=== PATIENT | female | born 1955 | race Caucasian/White ===

== ENCOUNTER 2017-06-15 06:29 | Emergency (ER) | payer OTHER ==
[2017-06-15 06:50] VITALS: O2SAT 92
--- NOTE | 2017-06-15 07:15 | ED.PDOC ---
History of Present Illness - General Chief Complaint: ENT Problem Stated Complaint: nose bleed Time Seen by Provider: 06/15/17 07:15 Source: patient Exam Limitations: no limitations - History of Present Illness Initial Comments: Emely Enriquez 62 y/o female stated that she had 2 episodes of nosebleeds one yesterday and this am.It spontaneously stopped. Denies nose injury or taking blood thinners no chronic medical problem. Timing/Duration: gradual Severity: mild EENT Location: nose Prearrival Treatment: squeezing nostrils Presenting Symptoms: see hpi Improving Factors: nothing Worsening Factors: nothing Associated Symptoms: denies symptoms Allergies/Adverse Reactions: Allergies Penicillins Allergy (Verified 05/31/16 21:12) Home Medications: Ambulatory Orders NK [NK] 06/15/17 Review of Systems - Review of Systems Constitutional: States: no symptoms reported EENTM: States: see HPI Respiratory: States: no symptoms reported Cardiology: States: no symptoms reported Gastrointestinal/Abdominal: States: no symptoms reported Past Medical History (General) - Patient Medical History Hx Asthma: Yes Hx of COPD: Yes Hx Congestive Heart Failure: No Hx Hypertension: Yes Hx Diabetes: No Surgical History: Hysterectomy - Vaccination History Hx Tetanus, Diphtheria Vaccination: No Hx Influenza Vaccination: No Hx Pneumococcal Vaccination: No - Social History Hx Tobacco Use: Yes Hx Alcohol Use: No Hx Substance Use: No Hx Substance Use Treatment: No Hx Depression: No - Female History Patient : No - Triage Comment ED Triage Comment: pt states nose has been bleeding on/off, for past two nights Family Medical History - Family History Mother Family History: Unknown Living Status: Unknown Hx Family Cancer: Yes - lungs-mom/brother Physical Exam - Physical Exam General Appearance: Alert, No apparent distress Eye Exam: bilateral normal Ear Exam: bilateral ear: auricle normal, canal normal, TM normal Nasal Exam: normal inspection, other - no active bleeding,dry nasal mucosa Throat Exam: normal mouth inspection, pharynx normal Neck: non-tender, full range of motion, supple Cardiovascular/Respiratory: regular rate, rhythm, no M/R/G, normal peripheral pulses Abdominal Exam: non-tender, no organomegaly Neurologic: no motor/sensory deficits, alert, oriented x 3 Skin Exam: normal color, warm/dry Progress - Progress Progress: 06/15/17 07:28 Last Vital Signs Temp 98.6 F 06/15/17 06:42 Pulse 88 06/15/17 06:42 Resp 20 06/15/17 06:42 BP 164/103 06/15/17 06:42 Pulse Ox 92 L 06/15/17 06:42 Departure - Departure Clinical Impression: Epistaxis Time of Disposition: 07:29 Disposition: Discharge to Home or Self Care Departure Forms: ED Discharge - Pt. Copy, Patient Portal Self Enrollment Instructions: DI for Nosebleed, Nosebleed, Nosebleeds (Alternative Therapy) Home Medications: Ambulatory Orders NK [NK] 06/15/17 Additional Instructions: AFRIN Nose [place] 2 sprays each nose 2-3 x a day 3 days off 3 days on as needed for nosebleeds.NEED TO SIGN UP FOR PRIMARY Md-KASIE/[phone] call for appointment
[2017-06-15 07:30] VITALS: TEMP 97.2
[2017-06-15] MEDS: OXYMETAZOLINE NASAL SPRAY 15 ML BTTL BNAS PRN (07:33)
[2017-06-15 07:53] VITALS: BP 152/98
== END 2017-06-15 07:48 | disposition home or self-care (01) ==
LOC: ER 06:29
DX: R04.0 Epistaxis (principal); J44.9 Chronic obstructive pulmonary disease, unspecified; I10 Essential (primary) hypertension; Z88.0 Allergy status to penicillin

== ENCOUNTER 2017-11-29 12:24 | Emergency (ER) | payer OTHER ==
--- NOTE | 2017-11-29 12:49 | ED.PDOC ---
History of Present Illness - General Time Seen by Provider: 11/29/17 12:43 Additional Information: 62 YEAR OLD WHITE FEMALE CHRONIC SMOKER FOR SEVERAL DECADES PRESENTS WITH INCREASING SHORTNESS OF BREATH COUGH SUB STERNAL PAIN SHARP IN CHARECTER WORSE WITH BREATHING DENIES ANY PRESSURE TIGHTNESS NO ARM NECK OR JAW PAIN SHE IS OBESE HAS HISTORY OF HYPERTENSION AND DISLIPIDEMIA FAMILY HISTORY OF CAD AND LUNG CANCER SHE WORKS AT A [employer] AND SHE HAS CHECKED HER OXYGEN SATURATION AT TIMES OF DISTRESS IT GOES DOWN TO 80S AND SHE HAS TO TAKE OXYGEN SHE HAS NO PCP - History of Present Illness Timing/Duration: 1 week Severity: moderate Activities at Onset: activity Possible Cause: occasional episodes Improving Factors: nothing Associated Symptoms: weakness, wheezing Respiratory Risk Factors: no cause identified Allergies/Adverse Reactions: Allergies Penicillins Allergy (Verified 05/31/16 21:12) Prednisone Adverse Reaction (Verified 11/29/17 13:12) Home Medications: Ambulatory Orders Albuterol Inhaler [Ventolin Hfa Inhaler] 1 puff INH PRN PRN 11/29/17 Azithromycin Tab [Zithromax Tab] 250 mg PO QDPC #6 tab 11/29/17 Dexamethasone Tab [Decadron Tab] 4 mg PO Q12HRS 5 Days #10 tab 11/29/17 Review of Systems - Review of Systems Constitutional: States: no symptoms reported EENTM: States: no symptoms reported Respiratory: States: see HPI Cardiology: States: no symptoms reported Gastrointestinal/Abdominal: States: no symptoms reported Genitourinary: States: no symptoms reported Musculoskeletal: States: no symptoms reported Skin: States: no symptoms reported Neurological: States: no symptoms reported Endocrine: States: no symptoms reported Hematologic/Lymphatic: States: no symptoms reported Past Medical History (General) - Patient Medical History Hx Asthma: Yes Hx of COPD: Yes Hx Congestive Heart Failure: No Hx Hypertension: Yes Hx Diabetes: No - Vaccination History Hx Tetanus, Diphtheria Vaccination: No Hx Influenza Vaccination: No Hx Pneumococcal Vaccination: No - Social History Hx Tobacco Use: Yes Hx Alcohol Use: No Hx Substance Use: No Hx Substance Use Treatment: No Hx Depression: No - Female History Patient : No Family Medical History - Family History Mother Family History: Unknown Living Status: Unknown Hx Family Cancer: Yes - lungs-mom/brother Physical Exam - Physical Exam General Appearance: Comfortable Eyes, Ears, Nose, Throat Exam: PERRL/EOMI, normal ENT inspection, TMs normal Neck: non-tender, full range of motion, supple Respiratory: chest non-tender, rhonchi, wheezing Cardiovascular/Chest: normal peripheral pulses, regular rate, rhythm, no edema, no gallop, no JVD, no murmur Gastrointestinal/Abdominal: normal bowel sounds, non tender, soft, no organomegaly, no pulsatile mass Extremity: normal range of motion, non-tender, normal inspection, no pedal edema 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, no motor/sensory deficits, alert, normal mood/affect Skin Exam: normal color, warm/dry Progress - Results/Orders Results/Orders: 2.20 PM POST TREATMENT AIR MOVEMENT MUCH IMPROVED NO MORE WHEEZES AUDIBLE PULSE OX 92 % ON ROOM AIR ( CHRONIC SMOKER ) Departure - Departure Clinical Impression: Acute bronchitis, COPD exacerbation, Nicotine abuse Time of Disposition: 14:27 Disposition: Discharge to Home or Self Care Condition: Good Diet: resume usual diet Prescriptions: Dexamethasone Tab [Decadron Tab] 4 mg PO Q12HRS 5 Days #10 tab Azithromycin Tab [Zithromax Tab] 250 mg PO QDPC #6 tab Home Medications: Ambulatory Orders Albuterol Inhaler [Ventolin Hfa Inhaler] 1 puff INH PRN PRN 11/29/17 Azithromycin Tab [Zithromax Tab] 250 mg PO QDPC #6 tab 11/29/17 Dexamethasone Tab [Decadron Tab] 4 mg PO Q12HRS 5 Days #10 tab 11/29/17 Additional Instructions: DO NOT SMOKE
[2017-11-29] MEDS: IPRATROPIUM/ALBUTEROL 3 ML VIAL NEB ONE ×2 (13:09→13:58)
[2017-11-29 13:12] VITALS: TEMP 98.4
--- NOTE | 2017-11-29 13:24 | RAD ---
EXAM: Chest,1 View CLINICAL INDICATION: 62-year-old female with COPD. TECHNIQUE: Single view, AP portable chest was obtained. COMPARISON: Single view chest 06/05/2016. FINDINGS: Stable prominent cardiac and mediastinal silhouette. Heart size is top normal. Low lung volumes grossly clear without focal opacity, pneumothorax or pleural effusions. The visualized bones are within normal limits. IMPRESSION: No acute cardiopulmonary abnormalities. Electronically signed by: Salma Chun MD 11/29/2017 1:22 PM CDT
[2017-11-29] MEDS ORDERED: DEXAMETHASONE INJ 4 MG/ML VIAL ONE (14:18)
[2017-11-29] MEDS ORDERED: ALBUTEROL SULFATE 2.5 MG/3 ML VIAL NEB ONE ×2 (14:19→14:40)
[2017-11-29] MEDS ORDERED: DEXAMETHASONE INJ 4 MG, SODIUM CHLORIDE 0.9% NEB 3 ML NEB ONE ×2 (14:20)
[2017-11-29] MEDS ORDERED: HYDROcodone 7.5MG/APAP 325MG 1 EA TAB PO ONE (15:10)
[2017-11-29 15:51] VITALS: BP 154/95; O2SAT 86
== END 2017-11-29 15:20 | disposition home or self-care (01) ==
LOC: ER 12:24
DX: J44.1 Chronic obstructive pulmonary disease with (acute) exacerbation (principal); J20.9 Acute bronchitis, unspecified; J44.0 Chronic obstructive pulmonary disease with (acute) lower respiratory infection; F17.210 Nicotine dependence, cigarettes, uncomplicated; I10 Essential (primary) hypertension; Z79.899 Other long term (current) drug therapy; E66.01 Morbid (severe) obesity due to excess calories; E78.5 Hyperlipidemia, unspecified
CPT/HCPCS: 36415; 71045; 80048; 84484; 85025; 93005; 94640; J1100; J7611; J7620

== ENCOUNTER 2018-12-10 11:23 | Inpatient (IN) | payer OTHER ==
[2018-12-10] MEDS ORDERED: IPRATROPIUM/ALBUTEROL 3 ML VIAL NEB ONE (11:33)
[2018-12-10] MEDS ORDERED: methylPREDNISolone SODIUM SUC 125 MG/2 ML VIAL IV ONE (11:33)
[2018-12-10] MEDS ORDERED: AZITHROMYCIN IV 500 MG in SODIUM CHLORIDE 0.9% 250ML 250 ML IVPB ONE (11:33)
[2018-12-10] MEDS ORDERED: MONTELUKAST 10 MG TAB PO ONE (11:33)
[2018-12-10] MEDS ORDERED: HYDROcodone 7.5MG/APAP 325MG 1 EA TAB PO ONE (11:33)
[2018-12-10] MEDS ORDERED: AZITHROMYCIN IV 500 MG VIAL IVPB ONE (11:34)
[2018-12-10] MEDS ORDERED: SODIUM CHLORIDE 0.9% 250ML 250 ML ONE (11:35)
--- NOTE | 2018-12-10 12:21 | RAD ---
Procedure: XR CHEST 2 VIEWS Exam Date: 12/10/2018 Ordering Provider: Cyril Reed Clinical Indication: copd exac Comparison: 11/30/2018 Findings: Borderline cardiomegaly. No focal lung consolidation. Lungs are hyperinflated. Coarsened interstitium similar to prior. No pleural effusion. No pneumothorax. No acute osseous abnormality. Impression: 1. No acute abnormality in the chest. Electronically signed by: Gustavo Valadez MD 12/10/2018 12:18 PM CDT
[2018-12-10] MEDS ORDERED: SODIUM CHLORIDE 0.9% 1000ML 1,000 ML IVS ONE (12:26)
[2018-12-10] MEDS ORDERED: cefTRIAXone SODIUM 1 GM in SODIUM CHL 0.9% 50ML MIN-BAG+ 50 ML IVPB ONE (12:26)
--- NOTE | 2018-12-10 12:40 | ED.PDOC ---
History of Present Illness - General Chief Complaint: Respiratory Problem Stated Complaint: shortness of breath Time Seen by Provider: 12/10/18 11:25 Source: patient Exam Limitations: no limitations - History of Present Illness Initial Comments: the patient is a 63-year-old female presenting to the emergency room secondary to increasing shortness of breath over the last 2 weeks. 10 days ago she went to the urgent care and was written for Levaquin and DuoNeb nebs. She did these but she was also written for prednisone but refused to take that secondary to her brother having had a very severe reaction to it. The patient does smoke and is around multiple allergens. She does have a low flow concentrator that she does sometimes wear at night. The patient desaturates at rest down to 84% here while not on oxygen. She is holding her oxygen levels at 93% on 3 L. The patient does have significant increased work of breathing and is able only to say a few words at a time without getting short of breath. She does sit in a tripod position and does have some moderate respiratory distress. She is alert and oriented. Timing/Duration: unsure Severity: moderate Improving Factors: nothing Worsening Factors: nothing Associated Symptoms: cough, malaise, shortness of breath, weakness Allergies/Adverse Reactions: Allergies Penicillins Allergy (Verified 05/31/16 21:12) Prednisone Adverse Reaction (Verified 11/29/17 13:12) Home Medications: Ambulatory Orders Albuterol Inhaler [Ventolin Hfa Inhaler] 1 puff INH PRN PRN 11/29/17 Review of Systems - Review of Systems Constitutional: States: malaise EENTM: States: nose congestion Respiratory: States: cough, short of breath, wheezing Cardiology: States: no symptoms reported Gastrointestinal/Abdominal: States: no symptoms reported Genitourinary: States: no symptoms reported Musculoskeletal: States: no symptoms reported Skin: States: no symptoms reported Neurological: States: no symptoms reported Endocrine: States: no symptoms reported All other Systems: No Change from Baseline Past Medical History (General) - Patient Medical History Hx Stroke: No Hx Asthma: Yes Hx of COPD: Yes Hx Cardiac Disorders: No Hx Congestive Heart Failure: No Hx Hypertension: Yes Hx Diabetes: No Hx Cancer: No Hx Hepatitis C: No Surgical History: Hysterectomy - Vaccination History Hx Tetanus, Diphtheria Vaccination: No Hx Influenza Vaccination: No Hx Pneumococcal Vaccination: No - Social History Hx Tobacco Use: Yes Hx Chewing Tobacco Use: No Hx Alcohol Use: No Hx Substance Use: No Hx Substance Use Treatment: No Hx Depression: No Hx Physical Abuse: No Hx Emotional Abuse: No Hx Suspected Abuse: No - Female History Patient : No Family Medical History - Family History Mother Family History: Unknown Living Status: Unknown Hx Family Cancer: Yes - lungs-mom/brother Physical Exam - Physical Exam General Appearance: Alert, Anxious, Other - the patient does smell of smoke Eye Exam: bilateral normal Ears, Nose, Throat: hearing grossly normal, nasal congestion Neck: full range of motion Respiratory: respiratory distress - moderate, decreased breath sounds, accessory muscle use, rhonchi, wheezing Cardiovascular/Chest: normal peripheral pulses, no edema, tachycardia - mild sinus Peripheral Pulses: radial,right: 2+, radial,left: 2+, dorsalis pedis,right: 2+, dorsalis pedis,left: 2+ Gastrointestinal/Abdominal: non tender - obese, soft Rectal Exam: deferred Back Exam: no CVA tenderness, no vertebral tenderness Extremity: non-tender, normal inspection, no pedal edema, normal capillary refill 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 The patient is receiving Rocephin and azithromycin. She is receiving duo nebs and is receiving IV Solu- Medrol. She refuses the prednisone at this point so she may need longer term dexamethasone orally. The patient is of course not to smoke. She is requiring supplemental oxygen 24 7 at this point which she does not have at home. Work of breathing has decreased somewhat since her arrival here with the treatments. Admit for continued care for COPD exacerbation. The patient does have some mild polycythemia which will need to be followed. Additionally she does have some moderate hypertension which will need to be followed this day and addressed if not improving over the next day or 2. - Results/Orders Results/Orders: chest x-ray shows COPD but no overt pneumonia. Mild cardiomegaly. Laboratory Results - last 24 hr 12/10/18 12/10/18 12/10/18 11:38 11:38 11:38 WBC 7.0 RBC 5.33 Hgb 17.2 H Hct 51.8 H MCV 97.3 MCH 32.3 H MCHC 33.2 RDW 13.6 Plt Count 196 MPV 8.1 Absolute Neuts (auto) 4.30 Absolute Lymphs (auto) 1.90 Absolute Monos (auto) 0.60 Absolute Eos (auto) 0.10 Absolute Basos (auto) 0.00 Neutrophils % 62.1 Lymphocytes % 27.6 Monocytes % 8.8 Eosinophils % 0.8 L Basophils % 0.7 Sodium 138 Potassium 4.1 Chloride 98 L Carbon Dioxide 28 Anion Gap 16.1 BUN 16 Creatinine 0.48 L BUN/Creatinine Ratio 33.3 H Random Glucose 131 H Serum Osmolality 278.7 Lactic Acid 1.9 Calcium 9.3 Magnesium 2.1 Total Bilirubin 0.8 AST 24 ALT 20 Alkaline Phosphatase 75 Creatine Kinase 85 CK-MB (CK-2) 2.8 CK-MB (CK-2) % Not Reportable Troponin I < 0.02 B-Natriuretic Peptide 17.4 Serum Total Protein 7.6 Albumin 4.2 Globulin 3.4 Albumin/Globulin Ratio 1.2 Departure - Departure Clinical Impression: Acute exacerbation of COPD with asthma, Polycythemia, Hypertension Disposition: Admit Patient Condition: Serious Departure Forms: ED Discharge - Pt. Copy, Patient Portal Self Enrollment Home Medications: Ambulatory Orders Albuterol Inhaler [Ventolin Hfa Inhaler] 1 puff INH PRN PRN 11/29/17 Decision To Admit - Decistion To Admit Decision to Admit Reason: Medical Nature Decision to Admit Date: 12/10/18 Decision to Admit Time: 12:44
--- NOTE | 2018-12-10 12:57 | HP ---
SUPERVISING PHYSICIAN: Jackson Dempsey M.D. CHIEF COMPLAINT: Worsening shortness of breath. HISTORY OF PRESENT ILLNESS: Ms. Enriquez is a 63 year-old female patient that presented to the Emergency Room today due to some increasing shortness of breath over the last several weeks. It was noted 10 days previously she had gone to [facility] where she was put on Levaquin and DuoNeb treatments. She was given a dose of prednisone but refused to take it as she has had a brother with a severe reaction to it in the past. She does have a longstanding history of chronic obstructive pulmonary disease and smokes approximately a pack of cigarettes a day. She does utilize oxygen at home, more at night than the day. In the E. R. she was showing desaturations as low as 84% while not on oxygen. While on oxygen in the E. R. she was showing saturation to 93% on 3 liters nasal cannula. She was having a significant amount of increased work to breathe, only able to speak a few words instead of full sentences before becoming short of breath. She does utilize tripod positioning and initially presented in mild respiratory distress. After breathing treatments and oxygen she was showing some improvement. She was alert and oriented. Laboratory studies showed a white count of 7,000. She was polycythemic with hemoglobin of 17.2, hematocrit 51.8, platelet count 196,000. Differential showed initially to be without a left shift. Chemistries showed normal electrolytes. Lactic acid normal at 1.9. Liver functions were all within normal limits. Troponin was less than 0.02 with a normal BNP of 17. Chest x-ray in the E. R. per radiology interpretation showed no acute abnormality in the chest. In the E. R., she was placed on oxygen and given breathing treatments. She did show some slight improvement but was continuing to show desaturations and easily became dyspneic with any exertional effort, therefore she is now going to be admitted for further treatment and evaluation with COPD exacerbation and for concerns for developing community acquired pneumonia. She was admitted in stable condition. PAST MEDICAL HISTORY: 1. Uncontrolled hypertension, note treated. 2. Chronic obstructive pulmonary disease, not currently under any treatment course. PAST SURGICAL HISTORY: 1. Total hysterectomy. 2. Tubal ligation. HOME MEDICATIONS: 1. Albuterol inhaler 1 puff every 4 hours as needed for shortness of breath. ALLERGIES: PENICILLINS AND PREDNISONE. FAMILY HISTORY: Positive for lung cancer in a brother who from complications at age 42. Mother at age 55 secondary to lung cancer. Father lived to be 85 years of age and secondary to advanced age. SOCIAL HISTORY: The patient does smoke approximately a pack of cigarettes daily and has for well over 40 years. She denies any alcohol or illicit drug use. She is . She lives in [place] and she works as a medical secretary/nurse renal technician. REVIEW OF SYSTEMS: GENERAL: The patient is sitting in the tripod position on the edge of the bed with some mild pursed lip breathing and obviously short of breath. HEENT: Tympanic membranes are clear bilaterally. Oropharynx is pink and moist without any lesions. NECK: Supple, non-tender. Full range of motion. There is no jugular venous distention. CHEST: Lungs were clear, just diminished bilaterally with some mild inspiratory and expiratory wheezing. HEART: Regular rate and rhythm. Mildly tachycardic but showing sinus. GASTROINTESTINAL: Obese but soft, non-tender. Positive bowel sounds. BACK: Without any CVA tenderness or vertebral tenderness. EXTREMITIES: Just a trace of edema bilaterally. NEUROLOGIC: Cranial nerves II-XII are grossly intact. She is alert and oriented times three. SKIN: Color was pallor but improved with oxygen. PHYSICAL EXAMINATION: VITAL SIGNS: Temperature 98.1, pulse 95, blood pressure 136/85, respirations 16, satting 92% on 2 liters nasal cannula. GENERAL: The patient is resting comfortably on the edge of the bed on oxygen. HEENT: Tympanic membranes are clear bilaterally. Oropharynx was pink and moist without any lesions. NECK: Supple, non-tender. Full range of motion. No jugular venous distention. CHEST: Lung sounds were diminished throughout. No obvious wheezing or rhonchi. CARDIOVASCULAR: Regular rate and rhythm without appreciable murmurs, gallops, or rubs. ABDOMEN: Obese but soft, non-tender. Positive bowel sounds. EXTREMITIES: Without any edema. NEUROLOGIC: She is alert and oriented times three. RECTAL: Exam was deferred. LABORATORY: White count showed to be 7,000, hemoglobin 17.2, hematocrit 51.8, platelet count 196,000. Differential showed to be within normal limits. Chemistry showed normal electrolytes, BUN 16, creatinine 0.48, glucose 133, lactic acid 1.9. Liver functions all within normal limits. MICROBIOLOGY: There is no specimen submitted. RADIOLOGY: Chest x-ray in the E. R. per radiology interpretation showed no acute abnormalities in the chest. ASSESSMENT: 1. Acute exacerbation of chronic obstructive pulmonary disease with concerns for developing community acquired pneumonia in a patient who is a chronic smoker and O2 dependent. 2. Poorly controlled hypertension. PLAN: Ms. Enriquez is going to be admitted for exacerbation of COPD with concerns for community acquired pneumonia. She was started on initial antibiotic coverage with Rocephin and azithromycin which will be continued. Will provide her with aggressive pulmonary hygiene. She will be on DVT prophylaxis as per protocol. Will resume her home medications once those have been updated and verified. Will anticipate her length of stay to be at least 2 to 3 days. Until she can transition to outpatient management will continue to monitor and treat as needed. #[id number] [facility]
[2018-12-10] MEDS ORDERED: ALBUTEROL SULFATE 2.5 MG/3 ML VIAL NEB PRN (14:17)
[2018-12-10] MEDS ORDERED: ACETAMINOPHEN 325 MG TAB PO PRN (14:17)
[2018-12-10] MEDS ORDERED: SODIUM CHLORIDE 0.9% (FLUSH) 10 ML SYG IV PRN (14:17)
[2018-12-10] MEDS ORDERED: MAGNESIUM HYDROXIDE 30 ML UD PO PRN (14:17)
[2018-12-10] MEDS ORDERED: ONDANSETRON INJ 4 MG/2 ML VIAL IV PRN (14:17)
[2018-12-10] MEDS ORDERED: IV SET AND CAP CHANGE INJ INJ SCH (14:30)
[2018-12-10] MEDS ORDERED: cefTRIAXone SODIUM 1 GM VIAL ONE (15:30)
[2018-12-10] MEDS ORDERED: SODIUM CHLORIDE 0.9% 50ML 50 ML ONE (15:31)
[2018-12-10] MEDS: IPRATROPIUM/ALBUTEROL 3 ML VIAL INH SCH ×2 (16:49→19:49)
[2018-12-10] MEDS: methylPREDNISolone SODIUM SUC 125 MG/2 ML VIAL IV SCH ×2 (17:22→23:18)
[2018-12-10] MEDS ORDERED: PANTOPRAZOLE SODIUM IV 40 MG VIAL ONE (19:03)
[2018-12-11] MEDS: methylPREDNISolone SODIUM SUC 125 MG/2 ML VIAL IV SCH ×3 (05:16→17:48)
[2018-12-11] MEDS: PANTOPRAZOLE SODIUM IV 40 MG VIAL IV SCH (06:02)
--- NOTE | 2018-12-11 07:14 | RAD ---
EXAM DESCRIPTION: Chest,2 Views CLINICAL HISTORY:63 years Female, Pneumonia Comparison: December 10, 2018 FINDINGS: No focal lung consolidation. No pleural effusion. No pneumothorax. Cardiac and mediastinal silhouette is unremarkable. No acute osseous abnormality. Soft tissues are unremarkable. IMPRESSION: No acute findings. No focal lung consolidation. Electronically signed by: Alberto Young MD 12/11/2018 7:11 AM CDT
[2018-12-11] MEDS: IPRATROPIUM/ALBUTEROL 3 ML VIAL INH SCH ×4 (08:47→21:20)
[2018-12-11] MEDS ORDERED: KETOROLAC TROMETHAMINE INJ 30 MG/ML VIAL IV ONE (09:47)
[2018-12-11] MEDS ORDERED: SODIUM CHL 0.9% 50ML MIN-BAG+ 50 ML IVPB ONE (12:02)
[2018-12-11] MEDS ORDERED: KETOROLAC TROMETHAMINE INJ 60 MG/2 ML VIAL IM ONE (12:02)
[2018-12-11] MEDS ORDERED: cefTRIAXone SODIUM 1 GM VIAL ONE (12:02)
[2018-12-11] MEDS ORDERED: KETOROLAC TROMETHAMINE INJ 30 MG/ML VIAL ONE (12:04)
[2018-12-11] MEDS: cefTRIAXone SODIUM 1 GM in SODIUM CHL 0.9% 50ML MIN-BAG+ 50 ML IVPB SCH (12:32)
[2018-12-11] MEDS: ENOXAPARIN SODIUM 40 MG/0.4 ML SYG SUBCU SCH (12:32)
[2018-12-11] MEDS: SODIUM CHLORIDE 0.9% (FLUSH) 10 ML SYG IV SCH ×2 (12:33→20:57)
[2018-12-11] MEDS ORDERED: AZITHROMYCIN IV 500 MG in SODIUM CHLORIDE 0.9% 250ML 250 ML IVPB SCH (13:00)
[2018-12-11] MEDS ORDERED: SODIUM CHLORIDE 0.9% 250ML 250 ML ONE (13:04)
[2018-12-11] MEDS ORDERED: AZITHROMYCIN IV 500 MG VIAL IVPB ONE (13:04)
[2018-12-11] MEDS: BUDESONIDE NEBS 0.5 MG/2 ML VIAL NEB SCH ×2 (13:04→21:20)
[2018-12-11] MEDS: HYDROcodone 5MG/APAP 325MG 1 EA TAB PO PRN ×2 (13:09→20:57)
--- NOTE | 2018-12-11 15:30 | PN ---
DATE: 12/11/18 SUPERVISING PHYSICIAN: Isak Moore M.D. SUBJECTIVE: The patient notes that her breathing has improved a little bit. She is actually able to walk out of her room, down the key and back without any assistance on oxygen. She has had no chest pains. She has had no nausea, vomiting, diarrhea or other further complaints. OBJECTIVE: VITAL SIGNS: Temperature 98, pulse 99, blood pressure 163/90, respirations 15, satting 88 to 91% on room air, improving to 94% on 2 liters nasal cannula. GENERAL: The patient is resting comfortably on the edge of the bed. She is alert. CHEST: Lung sounds are still diminished but improved bilaterally from previous admission. No wheezing is noted. HEART: Regular rate and rhythm. ABDOMEN: Obese but soft, non-tender. Positive bowel sounds. EXTREMITIES: Without any edema. NEUROLOGIC: She is alert and oriented times three. LABORATORY: White count 4,600, hemoglobin 16, hematocrit 48.8, platelet count 182,000. Differential shows a left shift. Chemistries show normal electrolytes today with BUN 21, creatinine 0.68, calcium 9.0. RADIOLOGY: Chest x-ray per radiology interpretation showed no acute findings. No lung consolidations. ASSESSMENT: 1. Acute exacerbation of chronic obstructive pulmonary disease with concerns for developing community acquired pneumonia in a patient who is a chronic smoker and O2 dependent. 2. Poorly controlled hypertension. PLAN: Ms. Enriquez will be continued to be followed with anticipation of hopefully being able to discharge tomorrow. Will continue with DVT prophylaxis. Will continue with aggressive management with aggressive pulmonary hygiene and high dose steroids. I have added Pulmicort to the regimen. She continues on DVT prophylaxis. I have resumed her home medications. Will hopefully be able to discharge the patient tomorrow to continue with outpatient management. Until then will continue to treat as needed. #[id number] [facility]
[2018-12-12] MEDS: methylPREDNISolone SODIUM SUC 125 MG/2 ML VIAL IV SCH (00:02)
[2018-12-12] MEDS: PANTOPRAZOLE SODIUM IV 40 MG VIAL IV SCH (06:18)
[2018-12-12] MEDS: IPRATROPIUM/ALBUTEROL 3 ML VIAL INH SCH (07:23)
[2018-12-12] MEDS: BUDESONIDE NEBS 0.5 MG/2 ML VIAL NEB SCH (07:23)
[2018-12-12] MEDS: ENOXAPARIN SODIUM 40 MG/0.4 ML SYG SUBCU SCH (08:14)
[2018-12-12] MEDS: SODIUM CHLORIDE 0.9% (FLUSH) 10 ML SYG IV SCH (09:19)
[2018-12-12] MEDS ORDERED: cefTRIAXone SODIUM 1 GM VIAL ONE (10:10)
[2018-12-12] MEDS ORDERED: SODIUM CHL 0.9% 50ML MIN-BAG+ 50 ML IVPB ONE (10:10)
[2018-12-12 10:56] VITALS: BP 145/77; TEMP 98; O2SAT 88
[2018-12-12] MEDS: cefTRIAXone SODIUM 1 GM in SODIUM CHL 0.9% 50ML MIN-BAG+ 50 ML IVPB SCH (11:20)
[2018-12-12] MEDS ORDERED: AZITHROMYCIN 250 MG TAB PO ONE (11:42)
--- NOTE | 2018-12-21 11:31 | DS ---
SUPERVISING PHYSICIAN: Isak Moore MD ADMISSION DIAGNOSIS: 1. Acute exacerbation of chronic obstructive pulmonary disease with concerns for developing community acquired pneumonia in a patient who is a chronic smoker and O2 dependent. 2. Poorly controlled hypertension. DISCHARGE DIAGNOSIS: 1. Acute exacerbation of chronic obstructive pulmonary disease with concerns for developing community acquired pneumonia in a patient who is a chronic smoker and O2 dependent. 2. Poorly controlled hypertension. REASON FOR HOSPITALIZATION: Ms. Enriquez is a 63 year-old female patient that presented to the Emergency Room today due to some increasing shortness of breath over the last several weeks. It was noted 10 days previously she had gone to [facility] where she was put on Levaquin and DuoNeb treatments. She was given a dose of prednisone but refused to take it as she has had a brother with a severe reaction to it in the past. She does have a longstanding history of chronic obstructive pulmonary disease and smokes approximately a pack of cigarettes a day. She does utilize oxygen at home, more at night than the day. In the E. R. she was showing desaturations as low as 84% while not on oxygen. While on oxygen in the E. R. she was showing saturation to 93% on 3 liters nasal cannula. She was having a significant amount of increased work to breathe, only able to speak a few words instead of full sentences before becoming short of breath. She does utilize tripod positioning and initially presented in mild respiratory distress. After breathing treatments and oxygen she was showing some improvement. She was alert and oriented. Laboratory studies showed a white count of 7,000. She was polycythemic with hemoglobin of 17.2, hematocrit 51.8, platelet count 196,000. Differential showed initially to be without a left shift. Chemistries showed normal electrolytes. Lactic acid normal at 1.9. Liver functions were all within normal limits. Troponin was less than 0.02 with a normal BNP of 17. Chest x-ray in the E. R. per radiology interpretation showed no acute abnormality in the chest. In the E. R., she was placed on oxygen and given breathing treatments. She did show some slight improvement but was continuing to show desaturations and easily became dyspneic with any exertional effort, therefore she is now going to be admitted for further treatment and evaluation with COPD exacerbation and for concerns for developing community acquired pneumonia. She was admitted in stable condition. LABORATORY: White count on admission was 7,000 and at discharge was 4,600. Hemoglobin and hematocrit were stable, at discharge hemoglobin 16, hematocrit 48.8. Platelet count 182,000. Differential was without a left shift. Chemistries showed normal electrolytes both on admission and at discharge. BUN 16, creatinine 0.68 at discharge. Liver functions all within normal limits. Lactic acid normal on admission was 1.9. Calcium 9.0. Urinalysis showed trace lysed blood, otherwise within normal limits. RADIOLOGY: Chest x-ray per radiologic interpretation of two-view chest showed no acute abnormalities within the chest. She had a followup x-ray on 12/11/18 and per radiologic interpretation again showed no acute findings, no lung consolidations. HOSPITAL COURSE: Ms. Enriquez was admitted on 12/10/18, discharged on 12/12/18. She was treated for exacerbation of chronic obstructive pulmonary disease with concerns for developing pneumonia. She was started on azithromycin and Rocephin. She was put on fairly aggressive steroid taper dosing with Solu- Medrol, q.i.d. DuoNeb treatments and Pulmicort inhaled nebs. She had good response to treatment and it was felt on day of discharge she was clinically stable enough to continue with outpatient management. PLAN: Ms. Enriquez was discharged on 12/12/18 with instructions to followup with her primary care provider, which is typically is walk-in clinic since she is not established at this time. She was to take all her medications as instructed and return to the hospital should she have any concerning symptoms. CONDITION AT DISCHARGE: Stable and improving. MEDICATIONS AT DISCHARGE: 1. Albuterol 1 puff q.4h. as needed, #1, no refills. 2. Azithromycin 250 mg mg q. daily for 4 days, no refills. 3. Medrol Dosepak 4 mg taper dose over 6 days, #21, no refills. DISCHARGE ASSESSMENT: VITAL SIGNS: Temperature 98. Pulse 103. Blood pressure 145/77. Oxygen saturation 88% on room air and satting up to 94% on nasal cannula at 2 liters at rest. DISPOSITION: The patient was discharged to care of family members. CONDITION AT DISCHARGE: Stable and improving. #[id number] [facility]
== END 2018-12-12 12:35 | disposition home or self-care (01) | DRG 192 ==
LOC: ER 11:23 → MS 12:56
PROVIDERS: ADMIT Nurse Practitioner Family; ATTEND Nurse Practitioner Family
DX: J44.1 Chronic obstructive pulmonary disease with (acute) exacerbation (principal); I10 Essential (primary) hypertension; Z99.81 Dependence on supplemental oxygen; D75.1 Secondary polycythemia; F17.210 Nicotine dependence, cigarettes, uncomplicated; Z88.0 Allergy status to penicillin; Z88.8 Allergy status to other drugs, medicaments and biological substances; Z80.1 Family history of malignant neoplasm of trachea, bronchus and lung; Z63.5 Disruption of family by separation and divorce

== ENCOUNTER → 2019-02-23 | Outpatient (CLI) | payer OTHER ==
--- NOTE | 2019-02-23 15:55 | US ---
US THYROID CLINICAL STATEMENT: E07.9. The palpable mass. No prior thyroid surgery or therapy.. COMPARISON: None TECHNIQUE: Transcutaneous scanning, grayscale and Doppler modes. FINDINGS: Size right thyroid lobe: 3.8 x 1.9 x 1.8 cm Size left thyroid lobe: 2.4 x 1.5 x 1.0 cm Size isthmus: 0.2 cm Estimated total number of nodules greater than or equal to 1 cm: None.. Technically difficult to evaluate the posterior thyroid gland due to position of the thyroid gland. Bilateral glands and the isthmus are inhomogeneous. Nodule 1: Size: 0.7 x 0.7 x 0.6 cm Location: Right Mid Composition: solid or almost completely solid: 2 points Echogenicity: hypoechoic: 2 points Shape: wider than tall: 0 points Margins: ill-defined: 0 points Echogenic foci: none: 0 points ACR Total Points: 4; ACR TI-RADS risk category: TR4 - moderately suspicious nodule. Nodule 2: Size: 0.6 x 0.6 x 0.6 cm Location: Right Mid Composition: solid or almost completely solid: 2 points Echogenicity: hypoechoic: 2 points Shape: wider than tall: 0 points Margins: ill-defined: 0 points Echogenic foci: none: 0 points ACR Total Points: 4; ACR TI-RADS risk category: TR4 - moderately suspicious nodule. No nodules or distinct cyst in the left lower isthmus. No dominant solid mass or distinct cyst in the soft tissues. IMPRESSION: 1. Nodule 1: ACR TI-RADS 2017 Category TR4. Recommend: No further follow-up.. Recommendations based upon [employer] Best Practice recommendations and ACR TI-RADS 2017 guidelines. Please see below*. 2. Nodule 2: ACR TI-RADS 2017 Category TR4. Recommend: No further follow-up. 3. Soft tissue around the thyroid gland is unremarkable. Heterogeneous left lobe and isthmus but no focal lesions. *ACR TI-RADS 2017 Recommendations: TR1: No FNA or follow up TR2: No FNA or follow up TR3: FNA if >/= 2.5 cm, follow up if 1.5 - 2.4 cm in 1, 3, and 5 years TR4: FNA if >/= 1.5 cm, follow up if 1.0 - 1.4 cm in 1, 2, 3, and 5 years TR5: FNA if >/= 1.0 cm, follow up if 0.5 - 0.9 cm every year for 5 years ACR TI-RADS recommends that no more than two nodules with the highest ACR TI-RADS total point should be biopsied and no more than four nodules should be followed. These recommendations do not apply to patients with increased risk for thyroid cancer or patients with symptomatic thyroid disease. Electronically signed by: Hakeem Salas MD 02/23/2019 3:53 PM CDT
== END ==
LOC: YCFC.O 07:58
PROVIDERS: ATTEND Family Medicine
DX: Z00.00 Encounter for general adult medical examination without abnormal findings (principal); E07.9 Disorder of thyroid, unspecified

== ENCOUNTER 2019-03-05 21:50 | Emergency (ER) | payer OTHER ==
[2019-03-05] MEDS ORDERED: NITROGLYCERIN 0.4 MG 25 EA TAB SL ONE ×2 (21:52→21:53)
[2019-03-05] MEDS ORDERED: ASPIRIN (CHEWABLE) 81 MG TAB ONE (21:53)
[2019-03-05] MEDS ORDERED: ASPIRIN (CHEWABLE) 81 MG TAB PO ONE (21:53)
[2019-03-05] MEDS ORDERED: MORPHINE SULFATE INJ 10 MG/ML VIAL ONE (22:02)
[2019-03-05] MEDS ORDERED: MORPHINE SULFATE INJ 10 MG/ML VIAL IM ONE (22:03)
[2019-03-05] MEDS ORDERED: IPRATROPIUM/ALBUTEROL 3 ML VIAL NEB ONE (22:04)
[2019-03-05] MEDS ORDERED: MORPHINE SULFATE INJ 10 MG/ML VIAL IV ONE (22:07)
--- NOTE | 2019-03-05 22:27 | RAD ---
CLINICAL HISTORY: chest pain, dyspnea COMPARISON: February 16, 2019. TECHNIQUE: XR CHEST 1 VIEW 03/05/2019 9:52 PM CDT FINDINGS: The heart is enlarged. Lungs are clear without consolidation, atelectasis, mass or edema. There is no pleural effusion. There is no pneumothorax. There are no acute osseous findings. IMPRESSION: Clear lungs. Electronically signed by: Arsenio Trevino MD 03/05/2019 10:25 PM CDT
[2019-03-05 22:46] VITALS: TEMP 98.6
[2019-03-06] MEDS ORDERED: KETOROLAC TROMETHAMINE INJ 30 MG/ML VIAL IV ONE (00:30)
[2019-03-06 00:51] VITALS: O2SAT 92
--- NOTE | 2019-03-06 01:38 | ED.PDOC ---
History of Present Illness - General Chief Complaint: Chest Pain/AL Stated Complaint: chest pain, dyspnea Time Seen by Provider: 03/05/19 21:58 Source: patient Exam Limitations: no limitations - History of Present Illness Initial Comments: the patient is a 63-year-old female presenting to emergency room secondary to chest pain that started when she woke up about 7 hours prior to arrival here. Pain is sharp. It is worse sometimes with taking a deep breath and twisting or turning. It is not worse with walking or doing any aerobic activity. No significant cough or shortness of breath. No nausea or vomiting. No diaphoresis. She denies any history of any coronary artery disease but she does have significant COPD. She does also have significant arthritic changes. Pain is almost completely reproducible with palpation to the right side of the sternum approximately one third of the way down the sternum. Timing/Duration: other - 7 hours prior to arrival Severity: moderate Improving Factors: nothing Worsening Factors: movement Associated Symptoms: chest pain Allergies/Adverse Reactions: Allergies Penicillins Allergy (Verified 05/31/16 21:12) Prednisone Adverse Reaction (Verified 11/29/17 13:12) Home Medications: Ambulatory Orders Albuterol Inhaler [Ventolin Hfa Inhaler] 1 puff INH PRN PRN #1 inh 12/12/18 Cefdinir 300 mg PO BID #20 capsule 02/16/19 Guaifenesin-Codeine [Cheratussin AC 100-10 mg/5Ml] 5 ml PO Q8H PRN #75 ml 02/16/19 Methylprednisolone [Medrol Dose Tex] 4 mg PO DAILY 6 Days #21 tab 02/16/19 Tramadol HCl 50 mg PO Q8HR PRN #20 tab 03/06/19 Review of Systems - Review of Systems Constitutional: States: no symptoms reported EENTM: States: no symptoms reported Respiratory: States: no symptoms reported Cardiology: States: chest pain Gastrointestinal/Abdominal: States: no symptoms reported Genitourinary: States: no symptoms reported Musculoskeletal: States: see HPI Skin: States: no symptoms reported Neurological: States: no symptoms reported All other Systems: No Change from Baseline Past Medical History (General) - Patient Medical History Hx Seizures: No Hx Stroke: No Hx Dementia: No Hx Asthma: Yes Hx of COPD: Yes Hx Cardiac Disorders: No Hx Congestive Heart Failure: No Hx Pacemaker: No Hx Hypertension: Yes - states she bottoms out during night time, so no meds at this time Hx Thyroid Disease: No Hx Diabetes: No Hx Gastroesophageal Reflux: No Hx Renal Disease: No Hx Cancer: No Hx of HIV: No Hx Hepatitis C: No Hx MRSA: No Surgical History: appendectomy, Hysterectomy - Vaccination History Hx Tetanus, Diphtheria Vaccination: No Hx Influenza Vaccination: No Hx Pneumococcal Vaccination: No Immunizations Up to Date: No - Social History Hx Tobacco Use: Yes Hx Chewing Tobacco Use: No Hx Alcohol Use: No Hx Substance Use: No Hx Substance Use Treatment: No Hx Depression: No Feels Threatened In Home Enviroment: No Feels Threatened In a Relationship: No Hx Physical Abuse: No Hx Emotional Abuse: No Hx Suspected Abuse: No - Activities of Daily Living Hospice Agency (if applicable):: None - Female History Patient is a Female of Child Bearing Age (10 -59 yrs old): No Patient : No - Triage Comment ED Triage Comment: large amt of sob noted with chest pain apon entering ER Family Medical History - Family History Mother Family History: Unknown Living Status: Unknown Hx Family Cancer: Yes - lungs-mom/brother Physical Exam - Physical Exam General Appearance: Alert, Anxious Eye Exam: bilateral normal Ears, Nose, Throat: hearing grossly normal, normal ENT inspection Neck: full range of motion, supple Respiratory: no respiratory distress, no accessory muscle use, other - the patient is barrel chested. She does have scattered wheezes and mild decreased air movement upon arrival here. 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, alert, oriented x 3, other - significantly anxious which does raise her blood pressure Skin Exam: normal color Comments: Vital Signs - 24 hr 03/05/19 03/05/19 03/05/19 21:59 22:00 22:18 Temperature 98.6 F Pulse Rate 120 H 124 H Pulse Rate [ 120 H tele monitor] Respiratory 24 22 Rate Blood Pressure 178/154 [Left Arm] O2 Sat by Pulse 94 L 91 L 94 L Oximetry 03/05/19 03/05/19 03/06/19 22:20 23:00 00:00 Temperature Pulse Rate Pulse Rate [ 120 H 118 H 110 H tele monitor] Respiratory 20 20 Rate Blood Pressure 123/77 137/97 [Left Arm] O2 Sat by Pulse 93 L 92 L Oximetry 03/06/19 01:00 Temperature Pulse Rate Pulse Rate [ 106 H tele monitor] Respiratory 20 Rate Blood Pressure 134/92 [Left Arm] O2 Sat by Pulse 92 L Oximetry Progress - Progress Progress: 03/06/19 01:41 the patient's a 63-year-old female presenting with atypical chest pain starting about 7 hours prior to arrival. Initial set of cardiac enzymes and repeat in 3 hours are negative. The patient has been offered admission for further monitoring however has deferred that at this point. She'll be written for tramadol. I believe the most likely source for chest pain is costochondritis on this patient. She can continue to take an [id number] anti-inflammatory. A topical rub such as icy hot or Biofreeze may also help. She does need to wear her oxygen for her COPD and I would recommend that she use her BiPAP appropriately for her sleep apnea. ER warnings were given for any acute worsening. Follow up with primary care doctor later in the coming week. - Results/Orders Results/Orders: chest x-ray shows chronic COPD changes and cardiomegaly. No overt fluid overload. EKG shows sinus tachycardia at 120 bpm. Left atrial dilation. Normal R-wave progression. Borderline LVH criteria. No definitive ST segment or T-wave changes indicative of acute ischemia. Normal axis. Normal QT interval. Laboratory Tests 03/05/19 03/05/19 03/05/19 21:52 21:52 22:07 WBC 12.4 H RBC 5.03 Hgb 16.9 H Hct 49.9 H MCV 99.1 H MCH 33.6 H MCHC 33.9 RDW 13.5 Plt Count 158 MPV 8.2 Absolute Neuts (auto) 9.50 H Absolute Lymphs (auto) 1.60 Absolute Monos (auto) 1.10 H Absolute Eos (auto) 0.00 Absolute Basos (auto) 0.10 Neutrophils % 76.9 Lymphocytes % 13.2 L Monocytes % 9.0 Eosinophils % 0.2 L Basophils % 0.7 PT 10.2 INR 1.02 PTT (SP) 26.1 D-Dimer, Quantitative 0.48 Sodium 134 L Potassium 4.3 Chloride 95 L Carbon Dioxide 28 Anion Gap 15.3 BUN 12 Creatinine 0.69 BUN/Creatinine Ratio 17.4 Random Glucose 144 H Serum Osmolality 270.5 L Lactic Acid 1.3 Calcium 10.1 Magnesium 2.1 Creatine Kinase 48 CK-MB (CK-2) 1.3 CK-MB (CK-2) % Not Reportable Troponin I < 0.02 B-Natriuretic Peptide 20.1 03/06/19 00:39 WBC RBC Hgb Hct MCV MCH MCHC RDW Plt Count MPV Absolute Neuts (auto) Absolute Lymphs (auto) Absolute Monos (auto) Absolute Eos (auto) Absolute Basos (auto) Neutrophils % Lymphocytes % Monocytes % Eosinophils % Basophils % PT INR PTT (SP) D-Dimer, Quantitative Sodium Potassium Chloride Carbon Dioxide Anion Gap BUN Creatinine BUN/Creatinine Ratio Random Glucose Serum Osmolality Lactic Acid Calcium Magnesium Creatine Kinase 49 CK-MB (CK-2) 1.4 CK-MB (CK-2) % Not Reportable Troponin I < 0.02 B-Natriuretic Peptide Departure - Departure Clinical Impression: Costochondritis, acute Disposition: Discharge to Home or Self Care Condition: Fair Departure Forms: ED Discharge - Pt. Copy, Patient Portal Self Enrollment Diet: regular diet Activity: increase activity as tolerated Referrals: Isacc Cerrato MD [Primary Care Provider] - 1-5 Days Prescriptions: Tramadol HCl 50 mg PO Q8HR PRN #20 tab PRN Reason: Moderate Pain Home Medications: Ambulatory Orders Albuterol Inhaler [Ventolin Hfa Inhaler] 1 puff INH PRN PRN #1 inh 12/12/18 Cefdinir 300 mg PO BID #20 capsule 02/16/19 Guaifenesin-Codeine [Cheratussin AC 100-10 mg/5Ml] 5 ml PO Q8H PRN #75 ml 02/16/19 Methylprednisolone [Medrol Dose Tex] 4 mg PO DAILY 6 Days #21 tab 02/16/19 Tramadol HCl 50 mg PO Q8HR PRN #20 tab 03/06/19 Additional Instructions: the patient's a 63-year-old female presenting with atypical chest pain starting about 7 hours prior to arrival. Initial set of cardiac enzymes and repeat in 3 hours are negative. The patient has been offered admission for further monitoring however has deferred that at this point. She'll be written for tramadol. I believe the most likely source for chest pain is costochondritis on this patient. She can continue to take an [id number] anti-inflammatory. A topical rub such as icy hot or Biofreeze may also help. She does need to wear her oxygen for her COPD and I would recommend that she use her BiPAP appropriately for her sleep apnea. ER warnings were given for any acute worsening. Follow up with primary care doctor later in the coming week.
[2019-03-06] MEDS ORDERED: HYDROcodone 7.5MG/APAP 325MG 1 EA TAB PO ONE (01:43)
[2019-03-06 02:01] VITALS: BP 132/84
== END 2019-03-06 02:00 | disposition home or self-care (01) ==
LOC: ER 21:50
DX: M94.0 Chondrocostal junction syndrome [Tietze] (principal); R00.0 Tachycardia, unspecified; J44.9 Chronic obstructive pulmonary disease, unspecified; I10 Essential (primary) hypertension; Z87.891 Personal history of nicotine dependence; Z79.899 Other long term (current) drug therapy; Z88.0 Allergy status to penicillin; Z88.8 Allergy status to other drugs, medicaments and biological substances; Z99.81 Dependence on supplemental oxygen
CPT/HCPCS: 36415; 71045; 80048; 82550; 82553; 83605; 83880; 84484; 85025; 85379; 85610; 85730; 93005; 94640; 94760; J1885; J2270; J7620

== ENCOUNTER 2019-04-28 18:11 | Emergency (ER) | payer OTHER ==
[2019-04-28 18:36] VITALS: TEMP 97.1
[2019-04-28] MEDS ORDERED: KETOROLAC TROMETHAMINE INJ 30 MG/ML VIAL IM ONE (18:38)
[2019-04-28] MEDS ORDERED: METHOCARBAMOL 750 MG TAB PO ONE (18:39)
--- NOTE | 2019-04-28 18:41 | ED.PDOC ---
History of Present Illness - General Chief Complaint: Back Pain or Injury Stated Complaint: Bilat lower back pain Time Seen by Provider: 04/28/19 18:38 Source: patient Exam Limitations: no limitations - History of Present Illness Initial Comments: 63F with PMH significant for COPD, HTN presents to the ED complaining of back pain. 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 The pain has been continuous, worse when she lays on her left side to sleep. Also worse with bending, moving and twisting. There is no history of trauma. No weakness, numbness or tingling. No focal neurologic deficits. No changes to bowel or bladder function. No other complaints at this time. She has history of COPD, wears O2 "sometimes." She does not feel short of breath currently. States that her oxygen saturation is usually around 88%. Allergies/Adverse Reactions: Allergies Penicillins Allergy (Verified 04/28/19 18:39) Prednisone Adverse Reaction (Verified 04/28/19 18:39) Home Medications: Ambulatory Orders Albuterol Inhaler [Ventolin Hfa Inhaler] 1 puff INH PRN PRN #1 inh 12/12/18 Cefdinir 300 mg PO BID #20 capsule 02/16/19 Guaifenesin-Codeine [Cheratussin AC 100-10 mg/5Ml] 5 ml PO Q8H PRN #75 ml 02/16/19 Methylprednisolone [Medrol Dose Tex] 4 mg PO DAILY 6 Days #21 tab 02/16/19 Tramadol HCl 50 mg PO Q8HR PRN #20 tab 03/06/19 Acetaminophen W/ Codeine [Tylenol W/ CODEINE #3] 1 ea PO Q4HR PRN #20 04/28/19 Methocarbamol [Robaxin] 750 mg PO Q6H PRN #30 tab 04/28/19 Review of Systems - Review of Systems Constitutional: Denies: chills, fever, weakness EENTM: Denies: no symptoms reported Respiratory: Denies: short of breath, wheezing Cardiology: Denies: chest pain, palpitations Gastrointestinal/Abdominal: Denies: abdominal pain, diarrhea, nausea, vomiting Genitourinary: Denies: dysuria, frequency, hematuria Musculoskeletal: States: back pain, muscle pain, muscle stiffness. Denies: neck pain Skin: Denies: rash Neurological: Denies: tingling, weakness Endocrine: Denies: no symptoms reported All other Systems: Reviewed and Negative Past Medical History (General) - Patient Medical History Hx Seizures: No Hx Stroke: Yes Hx Dementia: No Hx Asthma: Yes Hx of COPD: Yes Hx Cardiac Disorders: No Hx Congestive Heart Failure: No Hx Pacemaker: No Hx Hypertension: Yes Hx Thyroid Disease: No Hx Diabetes: No Hx Gastroesophageal Reflux: No Hx Renal Disease: No Hx Cancer: No Hx of HIV: No Hx Hepatitis C: No Hx MRSA: No Surgical History: Hysterectomy - Vaccination History Hx Tetanus, Diphtheria Vaccination: No Hx Influenza Vaccination: No Hx Pneumococcal Vaccination: No - Social History Hx Tobacco Use: Yes Hx Chewing Tobacco Use: No Hx Alcohol Use: No Hx Substance Use: No Hx Substance Use Treatment: No Hx Depression: No Hx Physical Abuse: No Hx Emotional Abuse: No Hx Suspected Abuse: No - Female History Patient is a Female of Child Bearing Age (10 -59 yrs old): No Patient : No Family Medical History - Family History Mother Family History: Unknown Living Status: Unknown Hx Family Cancer: Yes - lungs-mom/brother Physical Exam - Physical Exam General Appearance: Alert, Obese, Restless, Well Developed, Well Nourished Eyes, Ears, Nose, Throat Exam: normal ENT inspection Neck Exam: non-tender, full range of motion, normal alignment Back Exam: normal inspection, no CVA tenderness, decreased range of motion, muscle spasm, other - mild paraspinous tenderness at the level of the lumbar spine Neurologic: no motor/sensory deficits, alert, oriented x 3 Skin Exam: normal color Progress - Progress Progress: 04/28/19 19:32 Patient reassessed, she is feeling better. Will continue outpatient symptomatic management and she will follow up with her PCP. Home care instructions and return indications reviewed. 04/28/19 19:41 Patient reassessed, heart rate 97, O2 saturation 88% on room air, the patient states that she has home oxygen and will wear it. No SOB complaints MDM Patient presents to the ED with low back pain for one week. History of heavy lifting but no other traumatic injury. No bony point tenderness. No neurologic symptoms or lateralizing deficits. Most consistent with acute msk pain. No weakness, numbness, tingling, or changes to bowel/bladder function. She is moderately hypoxic which is chronic and related to her COPD, would benefit from home O2 which she has. Given toradol and robaxin in ED, no opiates as she does not have a ride. Will continue outpatient symptomatic management. Home care instructions and return indications reviewed. Departure - Departure Clinical Impression: Low back pain Qualifiers: Chronicity: acute Back pain laterality: bilateral Sciatica presence: without sciatica Qualified Code(s): M54.5 - Low back pain Strain of lumbar paraspinal muscle Qualifiers: Encounter type: initial encounter Qualified Code(s): S39.012A - Strain of muscle, fascia and tendon of lower back, initial encounter Time of Disposition: 19:34 Disposition: Discharge to Home or Self Care Condition: Good Departure Forms: ED Discharge - Pt. Copy, Patient Portal Self Enrollment Instructions: DI for Low Back Pain Diet: resume usual diet Activity: increase activity as tolerated Referrals: Isacc Cerrato MD [Primary Care Provider] - 1-2 Weeks Prescriptions: Acetaminophen W/ Codeine [Tylenol W/ CODEINE #3] 1 ea PO Q4HR PRN #20 PRN Reason: Pain Methocarbamol [Robaxin] 750 mg PO Q6H PRN #30 tab PRN Reason: Muscle Spasms Home Medications: Ambulatory Orders Albuterol Inhaler [Ventolin Hfa Inhaler] 1 puff INH PRN PRN #1 inh 12/12/18 Cefdinir 300 mg PO BID #20 capsule 02/16/19 Guaifenesin-Codeine [Cheratussin AC 100-10 mg/5Ml] 5 ml PO Q8H PRN #75 ml 02/16/19 Methylprednisolone [Medrol Dose Tex] 4 mg PO DAILY 6 Days #21 tab 02/16/19 Tramadol HCl 50 mg PO Q8HR PRN #20 tab 03/06/19 Acetaminophen W/ Codeine [Tylenol W/ CODEINE #3] 1 ea PO Q4HR PRN #20 04/28/19 Methocarbamol [Robaxin] 750 mg PO Q6H PRN #30 tab 04/28/19 Comments: Duy Mullen MD Emergency medicine Physician Number [id number]
[2019-04-28 19:47] VITALS: BP 150/92; O2SAT 87
== END 2019-04-28 19:48 | disposition home or self-care (01) ==
LOC: ER 18:11
DX: S39.012A Strain of muscle, fascia and tendon of lower back, initial encounter (principal); J44.9 Chronic obstructive pulmonary disease, unspecified; I10 Essential (primary) hypertension; Z87.891 Personal history of nicotine dependence; Z86.73 Personal history of transient ischemic attack (TIA), and cerebral infarction without residual deficits; Z79.899 Other long term (current) drug therapy; Z88.8 Allergy status to other drugs, medicaments and biological substances; Z88.0 Allergy status to penicillin; X50.0XXA Overexertion from strenuous movement or load, initial encounter; Y93.F2 Activity, caregiving, lifting; Y99.0 Civilian activity done for income or pay; Y92.69 Other specified industrial and construction area as the place of occurrence of the external cause; Z99.81 Dependence on supplemental oxygen

== ENCOUNTER 2019-05-02 08:36 | Emergency (ER) | payer OTHER ==
[2019-05-02] MEDS: diazePAM 2 MG TAB PO ONE (09:24)
[2019-05-02] MEDS: IPRATROPIUM/ALBUTEROL 3 ML VIAL NEB ONE (09:25)
--- NOTE | 2019-05-02 09:25 | RAD ---
EXAM DESCRIPTION: KUB CLINICAL HISTORY: left low back pain COMPARISON: None. IMPRESSION: Single AP supine view of the abdomen shows nonspecific, nonobstructive bowel gas pattern. No air-filled dilated loops of small bowel. No abnormal calcifications are seen in the expected location of the kidneys or ureters. Lung bases are not included in [id number]. Electronically signed by: Shelton Vega MD 05/02/2019 9:23 AM CDT
[2019-05-02] MEDS: HYDROcodone 5MG/APAP 325MG 1 EA TAB PO ONE (09:26)
--- NOTE | 2019-05-02 09:26 | RAD ---
EXAM DESCRIPTION: Lumbar Spine 3 Views CLINICAL HISTORY: 63 years Female, right low back pain 1 week COMPARISON: None. FINDINGS: 3 views of the lumbar spine show mild anterior wedging of the superior plate of T12. Osseous structures are diffusely osteopenic. Straightening of the normal lumbar lordosis is seen. Mild facet hypertrophic and degenerative changes from L4 through S1. Vascular calcifications are seen. IMPRESSION: Anterior wedging of the superior endplate of T12 is age indeterminate. Consider further evaluation with MRI or bone scan imaging. Straightening of the normal lumbar lordosis could be secondary to patient positioning or muscle spasm. Mild facet arthropathy L4-S1. Electronically signed by: Shelton Vega MD 05/02/2019 9:25 AM CDT
[2019-05-02] MEDS: KETOROLAC TROMETHAMINE INJ 30 MG/ML VIAL IM ONE (09:27)
[2019-05-02] MEDS: MAGNESIUM HYDROXIDE 30 ML UD PO ONE (10:11)
[2019-05-02] MEDS: LUBIPROSTONE 24 MCG CAP PO ONE (10:11)
[2019-05-02 10:16] VITALS: O2SAT 92
--- NOTE | 2019-05-02 10:28 | ED.PDOC ---
History of Present Illness - General Chief Complaint: Back Pain or Injury Stated Complaint: R low back discomfort Time Seen by Provider: 05/02/19 08:50 Source: patient Exam Limitations: no limitations - History of Present Illness Initial Comments: the patient's 63-year-old female presenting to the emergency room secondary to right sided low back pain that's been present for 6 or 7 days at least at this point. She was given Robaxin and Tylenol No. 3 a few days ago here when she was seen. 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 The patient does have significant COPD but does not appear to be in a flare. She has a little bit hypoxic even at rest with oxygen saturations averaging about 86-89%. She reports she does not wear her oxygen that she has. She does report that she has been doing her breathing treatments. She does not appear in any respiratory distress. She denies any fevers. Back pain is somewhat roving but seems to be mostly to the right side and she has most point discomfort palpation approximately 3 inches to the right of L2-L4. She is also having some right lateral abdominal pain. She reports that this just started within the last couple of days. She is concerned she may have a urinary tract infection though she is not reporting any urinary symptoms.no step-offs on the spine. No point tenderness over the spine. Timing/Duration: 1 week Severity: moderate Improving Factors: nothing Worsening Factors: movement Associated Symptoms: denies symptoms Allergies/Adverse Reactions: Allergies Penicillins Allergy (Verified 04/28/19 18:39) Prednisone Adverse Reaction (Verified 04/28/19 18:39) Home Medications: Ambulatory Orders Albuterol Inhaler [Ventolin Hfa Inhaler] 1 puff INH PRN PRN #1 inh 12/12/18 Cefdinir 300 mg PO BID #20 capsule 02/16/19 Guaifenesin-Codeine [Cheratussin AC 100-10 mg/5Ml] 5 ml PO Q8H PRN #75 ml 02/16/19 Methylprednisolone [Medrol Dose Tex] 4 mg PO DAILY 6 Days #21 tab 02/16/19 Tramadol HCl 50 mg PO Q8HR PRN #20 tab 03/06/19 Acetaminophen W/ Codeine [Tylenol W/ CODEINE #3] 1 ea PO Q4HR PRN #20 04/28/19 Methocarbamol [Robaxin] 750 mg PO Q6H PRN #30 tab 04/28/19 Yhiuabelhvdyl-Dkao-Zevcjcrsdk [Fioricet] 1 ea PO Q8H PRN #30 tab 05/02/19 Dexamethasone [Decadron] 4 mg PO DAILY #5 tab 05/02/19 Review of Systems - Review of Systems Constitutional: States: no symptoms reported EENTM: States: no symptoms reported Respiratory: States: no symptoms reported Cardiology: States: no symptoms reported Gastrointestinal/Abdominal: States: abdominal pain, constipation. Denies: diarrhea, vomiting Genitourinary: States: no symptoms reported Musculoskeletal: States: back pain Skin: States: no symptoms reported Neurological: States: no symptoms reported - no radiculopathy Endocrine: States: no symptoms reported All other Systems: No Change from Baseline Past Medical History (General) - Patient Medical History Hx Seizures: No Hx Stroke: No Hx Dementia: No Hx Asthma: Yes Hx of COPD: Yes Hx Cardiac Disorders: No Hx Congestive Heart Failure: No Hx Pacemaker: No Hx Hypertension: Yes Hx Thyroid Disease: No Hx Diabetes: No Hx Gastroesophageal Reflux: No Hx Renal Disease: No Hx Cancer: No Hx of HIV: No Hx Hepatitis C: No Hx MRSA: No - Vaccination History Hx Tetanus, Diphtheria Vaccination: No Hx Influenza Vaccination: No Hx Pneumococcal Vaccination: No - Social History Hx Tobacco Use: Yes Hx Chewing Tobacco Use: No Hx Alcohol Use: No Hx Substance Use: No Hx Substance Use Treatment: No Hx Depression: No Hx Physical Abuse: No Hx Emotional Abuse: No Hx Suspected Abuse: No - Female History Patient : No Family Medical History - Family History Mother Family History: Unknown Living Status: Unknown Hx Family Cancer: Yes - lungs-mom/brother Physical Exam - Physical Exam General Appearance: Alert, Comfortable, No apparent distress Eye Exam: bilateral normal - she does appear to have mild subconjunctival hemorrhages. Ears, Nose, Throat: hearing grossly normal, normal pharynx Neck: non-tender, full range of motion - no new limitations on range of motion Respiratory: no respiratory distress, no accessory muscle use, decreased breath sounds - chronic, wheezing - very mild scattered wheezes Cardiovascular/Chest: normal peripheral pulses, no edema, other - regular rate Peripheral Pulses: radial,right: 2+, radial,left: 2+, dorsalis pedis,right: 2+, dorsalis pedis,left: 2+ Gastrointestinal/Abdominal: non tender - obese, soft Rectal Exam: deferred Back Exam: no vertebral tenderness, CVA tenderness (R) - no pain to percussion Extremity: normal range of motion, non-tender, normal inspection, no pedal edema, normal capillary refill 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, alert, normal mood/affect, oriented x 3 Skin Exam: normal color Comments: Vital Signs (72 hours) 05/02/19 05/02/19 05/02/19 08:40 09:27 09:37 Temperature 98.2 F Pulse Rate 87 Pulse Rate [ 105 H 97 H Right Radial] Respiratory 22 18 18 Rate Blood Pressure 153/110 157/101 [Left Arm] O2 Sat by Pulse 90 L 93 L 94 L Oximetry 05/02/19 10:00 Temperature Pulse Rate Pulse Rate [ 97 H Right Radial] Respiratory 18 Rate Blood Pressure 154/76 [Left Arm] O2 Sat by Pulse 92 L Oximetry Progress - Progress Progress: 05/02/19 10:31 the patient's 63-year-old female with long-standing COPD presented primarily secondary to right back pain for the better part of the last week. She is also having a little bit of right lateral abdominal discomfort. X-ray of the abdomen does show a significant stool burden to the right colon. This very well may be the source of the pain. She is being given a dose of milk of magnesia and amitiza. She needs to maintain a high-fiber diet. She can take oxdl-vrh-svboqfw MiraLAX a couple of times a week to prevent further constipation. Additionally the patient does have a superior endplate compression fracture of the T12 vertebra that is most likely old. However if the patient starts to develop pain several inches higher than where she cu rrently has it and more centrally, then repeat imaging may be warranted to rule out a new fracture or fracture progression there. Urinalysis was clear here. It is also simply possible that this may be lumbar myofascial strain from lifting a patient about a week ago that has persisted for her. To that end, if her pain fails to be relieved with correction of the constipation, then the patient can get prescriptions for decadron and Fioricet filled for the next few days. In that case topical heat in the form of icy hot, Biofreeze or heat pad may help along with stretching exercises. Additionally the patient should wear her oxygen when she is able to, as she is hypoxic at baseline. Certainly posturing to improve breathing may be making back discomfort worse. Continue breathing treatments. Discontinue smoking. Follow back up with primary care doctor in a few days. obviously if the patient is failing to improve over the next few weeks then additional workup would be required. 05/02/19 10:42 [place] [place] [id number] 05/02/19 10:43 - Results/Orders Results/Orders: Laboratory Results - last 24 hr 05/02/19 09:50 Urine Color Dk yellow H Urine Appearance Clear Urine pH 5.0 Ur Specific [place] 1.025 Urine Protein Trace Urine Glucose (UA) Negative Urine Ketones 15 H Urine Blood Negative Urine Nitrite Negative Urine Bilirubin Moderate Urine Urobilinogen 0.2 Ur Leukocyte Esterase Negative Urine RBC 0-1 Urine WBC 1-3 Ur Epithelial Cells 1-3 Urine Bacteria Rare Urine Mucus Trace KUB shows no evidence of acute pathology. She does appear to have a large stool burden on the right side of the large intestine. X-ray lumbar spine shows chronic arthritic changes. She does have mildSuperior endplate compression of T12 that I believe is old. Departure - Departure Clinical Impression: Low back pain Qualifiers: Chronicity: acute Back pain laterality: right Sciatica presence: without sciatica Qualified Code(s): M54.5 - Low back pain Constipation Qualifiers: Constipation type: unspecified constipation type Qualified Code(s): K59.00 - Constipation, unspecified COPD (chronic obstructive pulmonary disease) Qualifiers: COPD type: unspecified COPD Qualified Code(s): J44.9 - Chronic obstructive pulmonary disease, unspecified Disposition: Discharge to Home or Self Care Condition: Fair Departure Forms: ED Discharge - Pt. Copy, Patient Portal Self Enrollment Instructions: DI for Low Back Pain, Constipation, Adult (DC), High Fiber Diet Diet: other - high-fiber diet Activity: increase activity as tolerated Referrals: Isacc Cerrato MD [Primary Care Provider] - 1-5 Days Prescriptions: Wintkfliptjig-Tsqg-Ixcudituyg [Fioricet] 1 ea PO Q8H PRN #30 tab PRN Reason: Pain Dexamethasone [Decadron] 4 mg PO DAILY #5 tab Home Medications: Ambulatory Orders Albuterol Inhaler [Ventolin Hfa Inhaler] 1 puff INH PRN PRN #1 inh 12/12/18 Cefdinir 300 mg PO BID #20 capsule 02/16/19 Guaifenesin-Codeine [Cheratussin AC 100-10 mg/5Ml] 5 ml PO Q8H PRN #75 ml 02/16/19 Methylprednisolone [Medrol Dose Tex] 4 mg PO DAILY 6 Days #21 tab 02/16/19 Tramadol HCl 50 mg PO Q8HR PRN #20 tab 03/06/19 Acetaminophen W/ Codeine [Tylenol W/ CODEINE #3] 1 ea PO Q4HR PRN #20 04/28/19 Methocarbamol [Robaxin] 750 mg PO Q6H PRN #30 tab 04/28/19 Bshkpvhsmnapz-Bimr-Mpcuuemlop [Fioricet] 1 ea PO Q8H PRN #30 tab 05/02/19 Dexamethasone [Decadron] 4 mg PO DAILY #5 tab 05/02/19 Additional Instructions: the patient's 63-year-old female with long-standing COPD presented primarily secondary to right back pain for the better part of the last week. She is also having a little bit of right lateral abdominal discomfort. X-ray of the abdomen does show a significant stool burden to the right colon. This very well may be the source of the pain. She is being given a dose of milk of magnesia and amitiza. She needs to maintain a high-fiber diet. She can take dprn-mod-wgmxope MiraLAX a couple of times a week to prevent further constipation. Additionally the patient does have a superior endplate compression fracture of the T12 vertebra that is most likely old. However if the patient starts to develop pain several inches higher than where she currently has it and more centrally, then repeat imaging may be warranted to rule out a new fracture or fracture progression there. Urinalysis was clear here. It is also simply possible that this may be lumbar myofascial strain from lifting a patient about a week ago that has persisted for her. To that end, if her pain fails to be relieved with correction of the constipation, then the patient can get prescriptions for decadron and Fioricet filled for the next few days. In that case topical heat in the form of icy hot, Biofreeze or heat pad may help along with stretching exercises. Additionally the patient should wear her oxygen when she is able to, as she is hypoxic at baseline. Certainly posturing to improve breathing may be making back discomfort worse. Continue breathing treatments. Discontinue smoking. Follow back up with primary care doctor in a few days. obviously, if the patient is failing to improve over the next few weeks, or if symptoms change significantly, then additional workup would be required.
[2019-05-02 10:56] VITALS: BP 161/89; TEMP 97.8
== END 2019-05-02 10:53 | disposition home or self-care (01) ==
LOC: ER 08:36
DX: M54.5 Low back pain (principal); K59.00 Constipation, unspecified; J44.9 Chronic obstructive pulmonary disease, unspecified; I10 Essential (primary) hypertension; E66.9 Obesity, unspecified; Z87.891 Personal history of nicotine dependence; Z79.899 Other long term (current) drug therapy; Z99.81 Dependence on supplemental oxygen; Z88.0 Allergy status to penicillin; Z88.8 Allergy status to other drugs, medicaments and biological substances; Z68.30 Body mass index [BMI] 30.0-30.9, adult
CPT/HCPCS: 72100; 74018; 81001; 94640; J1885; J7620

== ENCOUNTER → 2019-05-26 | Outpatient (CLI) | payer OTHER ==
--- NOTE | 2019-05-27 13:13 | MRI ---
EXAM DESCRIPTION: Lumbar Spine w/o Contrast CLINICAL HISTORY: 64 years Female, LOW BACK PAIN COMPARISON: None available. TECHNIQUE: Multiplanar multiecho imaging of the lumbar spine was performed without intravenous contrast administration. FINDINGS: Acute compression fracture of T12 vertebral body with approximately 30-40% loss of height. Remainder of the vertebral body heights are well-maintained with no acute compression deformity. Multilevel intervertebral disc space narrowing is noted. The conus medullaris terminates at T12-L1 intervertebral disc space. The visualized spinal cord demonstrates no signal abnormality. L1-L2: Bilateral facet arthropathy. No canal stenosis or neural foraminal narrowing. L2-L3: Bilateral facet arthropathy. No central canal stenosis or neural foraminal narrowing. L3-L4: Mild bilateral facet arthropathy. No central canal stenosis or neural foraminal narrowing. L4-L5: Mild bilateral facet arthropathy. No central canal stenosis. There is mild left neural foraminal narrowing. L5-S1: Mild bilateral facet arthropathy. No central canal stenosis. Mild bilateral neural foraminal narrowing. The visualized prevertebral and paravertebral soft tissues appear unremarkable. IMPRESSION: Acute compression fracture of T12 vertebral body with approximately 30-40% loss of height. Mild multilevel facet arthropathy throughout the lumbar spine with mild neural foraminal narrowing as detailed above. Electronically signed by: Oneyda Taylor MD 05/27/2019 1:11 PM CDT
--- NOTE | 2019-05-27 13:14 | MRI ---
EXAM DESCRIPTION: Thoracic Spine w/o Contrast CLINICAL HISTORY: 64 years Female, LOW BACK PAIN COMPARISON: None. TECHNIQUE: Multiplanar multiecho imaging of the thoracic spine was performed without gadolinium administration. FINDINGS: Acute compression fracture of T12 vertebral body with approximately 30-40% loss of height. Remainder of the vertebral body heights are well-maintained with no acute compression deformity. There is mild multilevel degenerative disc disease and facet arthropathy throughout the thoracic spine. No evidence of subluxation. No significant central canal stenosis or neural foraminal narrowing. The visualized spinal cord demonstrates no intrinsic signal abnormality. The visualized prevertebral and paravertebral soft tissues appear normal. IMPRESSION: Acute compression fracture of T12 vertebral body with approximately 30-40% loss of height. Electronically signed by: Oneyda Taylor MD 05/27/2019 1:13 PM CDT
== END ==
LOC: MRI 14:00
PROVIDERS: ATTEND Family Medicine
DX: S22.080A Wedge compression fracture of T11-T12 vertebra, initial encounter for closed fracture (principal); M46.96 Unspecified inflammatory spondylopathy, lumbar region

== ENCOUNTER 2019-08-29 13:55 | Emergency (ER) | payer MEDICARE, OTHER ==
[2019-08-29] MEDS ORDERED: SODIUM CHLORIDE 0.9% (FLUSH) 10 ML SYG IV PRN (14:28)
[2019-08-29] MEDS ORDERED: KETOROLAC TROMETHAMINE INJ 30 MG/ML VIAL IV ONE (14:29)
[2019-08-29] MEDS ORDERED: methylPREDNISolone SODIUM SUC 125 MG/2 ML VIAL IV ONE (14:29)
[2019-08-29] MEDS ORDERED: SODIUM CHLORIDE 0.9% 500ML 500 ML IVS ONE (14:30)
--- NOTE | 2019-08-29 14:33 | ED.PDOC ---
History of Present Illness - General Chief Complaint: Respiratory Problem Stated Complaint: SOB Time Seen by Provider: 08/29/19 14:28 Source: patient - History of Present Illness Initial Comments: 64 yo female with PMH of COPD who presents with cc of cough and dyspnea. Onset 3-4 days ago with gradual worsening, states cough is now frequent and productive for white phlegm. Also reports 8/10 tightness throughout her anterior chest, worse with coughing & activity. States she becomes short of breath with walking short distances. Also continues to smoke 1 ppd cigarettes which worsens her sx's. Warm conditions also worsen. Reports also headache. Denies fevers, chills, abd pain, n/v/d, urinary sx's, leg swelling. Requesting "strong antibiotics and 3 days off from work and pain medications for my back." Complains of chronic back pain, unchanged from usual. Hx of back frx at T12 area and Rx'd Tramadol by her PCP but states it doesn't work. Allergies/Adverse Reactions: Allergies Penicillins Allergy (Verified 08/29/19 14:28) Prednisone Adverse Reaction (Verified 08/29/19 14:28) Home Medications: Ambulatory Orders Albuterol Inhaler [Ventolin Hfa Inhaler] 1 puff INH PRN PRN #1 inh 12/12/18 Cefdinir 300 mg PO BID #20 capsule 02/16/19 Guaifenesin-Codeine [Cheratussin AC 100-10 mg/5Ml] 5 ml PO Q8H PRN #75 ml 02/16/19 Methylprednisolone [Medrol Dose Tex] 4 mg PO DAILY 6 Days #21 tab 02/16/19 Tramadol HCl 50 mg PO Q8HR PRN #20 tab 03/06/19 Acetaminophen W/ Codeine [Tylenol W/ CODEINE #3] 1 ea PO Q4HR PRN #20 04/28/19 Methocarbamol [Robaxin] 750 mg PO Q6H PRN #30 tab 04/28/19 Xosplowdqbzrk-Mrpi-Jsmgzksvfr [Fioricet] 1 ea PO Q8H PRN #30 tab 05/02/19 Dexamethasone [Decadron] 4 mg PO DAILY #5 tab 05/02/19 Acetaminophen W/ Codeine [Tylenol W/ CODEINE #3] 1 ea PO Q6H PRN 14 Days #15 08/29/19 Azithromycin Tab [Zithromax Tab] 250 mg PO DAILY 4 Days #4 tab 08/29/19 Prednisone 60 mg PO DAILY 5 Days #15 tab 08/29/19 Review of Systems - Review of Systems Review of Systems: 08/29/19 14:33 as per HPI All other Systems: Reviewed and Negative Past Medical History (General) - Patient Medical History Hx Seizures: No Hx Stroke: No Hx Dementia: No Hx Asthma: Yes Hx of COPD: Yes Hx Cardiac Disorders: No Hx Congestive Heart Failure: No Hx Pacemaker: No Hx Hypertension: Yes Hx Thyroid Disease: No Hx Diabetes: No Hx Gastroesophageal Reflux: No Hx Renal Disease: No Hx Cancer: No Hx of HIV: No Hx Hepatitis C: No Hx MRSA: No Surgical History: Hysterectomy - Vaccination History Hx Tetanus, Diphtheria Vaccination: No Hx Influenza Vaccination: No Hx Pneumococcal Vaccination: No Immunizations Up to Date: No - Social History Hx Tobacco Use: Yes Hx Chewing Tobacco Use: No Hx Alcohol Use: No Hx Substance Use: No Hx Substance Use Treatment: No Hx Depression: No Hx Physical Abuse: No Hx Emotional Abuse: No Hx Suspected Abuse: No - Female History Patient is a Female of Child Bearing Age (10 -59 yrs old): No Patient : No Family Medical History - Family History Mother Family History: Unknown Living Status: Unknown Hx Family Cancer: Yes - lungs-mom/brother Physical Exam - Physical Exam General Appearance: Alert, No apparent distress Eyes, Ears, Nose, Throat Exam: PERRL/EOMI, normal ENT inspection, pharynx normal Neck: non-tender, full range of motion, supple, normal inspection Respiratory: no respiratory distress, decreased breath sounds - throughout, wheezing - end-exp wheezes throughout and diminished air movement throughout, no appreciable rales, other - chest tightness reproducible with palpation of anterior chest wall Cardiovascular/Chest: normal peripheral pulses, regular rate, rhythm, no edema, no gallop, no JVD, no murmur Gastrointestinal/Abdominal: non tender, soft, no organomegaly Extremity: normal range of motion, non-tender, normal inspection, no pedal edema, no calf tenderness Neurologic: gut dropper II-XII nml as tested, no motor/sensory deficits, alert, normal mood/affect, oriented x 3 Skin Exam: normal color, warm/dry Progress - Progress Progress: 08/29/19 14:35 Dyspnea, chest tightness -suspect acute on chronic COPD exacerbation. Consider also PNA vs ACS vs CHF vs other -obtain CXR, EKG, labs, flu -place PIV, 500 cc bolus, Solumedrol 80 mg IV, Yani, reassess 08/29/19 16:04 -Pt reports feeling much better. Labs largely unremarkable, flu negative. CXR shows no acute processes per my read. -discussed dx of acute on chronic COPD exacerbation and acute bronchitis as well as expected course and trx plan. Discussed smoking cessation. -will send home on 5-day course of azithromycin, prednisone (listed as allergy but pt states she has had before and no issues), continued home albuterol nebs. Work note provided. F/u closely with PCP. Return warnings discussed at length. Fab Dawkins MD Billing #[id number] - Results/Orders Results/Orders: 08/29/19 14:28 IV Care:Saline Lock per Protoc QSHIFT Telemetry ONCE Sodium Chloride 0.9% (Flush) [Saline Flush Syringe] 3 ml IV PRN PRN URINALYSIS Stat 08/29/19 14:30 EKG STAT 08/29/19 14:45 TROPONIN-I Stat 08/30/19 09:00 Pulse Ox Daily Laboratory Results - last 24 hr 08/29/19 08/29/19 08/29/19 14:45 14:45 14:45 WBC 7.6 RBC 4.95 Hgb 16.2 H Hct 47.9 H MCV 96.8 MCH 32.7 H MCHC 33.8 RDW 12.7 Plt Count 207 MPV 8.2 Absolute Neuts (auto) 4.30 Absolute Lymphs (auto) 2.50 Absolute Monos (auto) 0.70 Absolute Eos (auto) 0.10 Absolute Basos (auto) 0.10 Neutrophils % 56.1 Lymphocytes % 32.5 Monocytes % 9.2 H Eosinophils % 1.1 Basophils % 1.1 Sodium 140 Potassium 3.1 L Chloride 99 L Carbon Dioxide 31 Anion Gap 13.1 BUN 14 Creatinine 0.52 L BUN/Creatinine Ratio 26.9 H Random Glucose 102 Serum Osmolality 280.1 Calcium 9.2 B-Natriuretic Peptide 39.8 - EKG/XRAY/CT EKG: Sinus - normal sinus rhythm, HR 90, no ST elev or q waves, axis normal, intervals normal, compared to 03/05/19 EKG sinus tach now resolved. Departure - Departure Clinical Impression: COPD with exacerbation Acute bronchitis Qualifiers: Bronchitis organism: unspecified organism Qualified Code(s): J20.9 - Acute bronchitis, unspecified Time of Disposition: 16:06 Disposition: Discharge to Home or Self Care Condition: Fair Departure Forms: ED Discharge - Pt. Copy, ED Discharge - Work Release, Patient Portal Self Enrollment Instructions: Exacerbation of COPD (DC) Diet: resume usual diet Activity: increase activity as tolerated Referrals: Isacc Cerrato MD [Primary Care Provider] - 1-2 Weeks Prescriptions: Acetaminophen W/ Codeine [Tylenol W/ CODEINE #3] 1 ea PO Q6H PRN 14 Days #15 PRN Reason: Pain Azithromycin Tab [Zithromax Tab] 250 mg PO DAILY 4 Days #4 tab Prednisone 60 mg PO DAILY 5 Days #15 tab Home Medications: Ambulatory Orders Albuterol Inhaler [Ventolin Hfa Inhaler] 1 puff INH PRN PRN #1 inh 12/12/18 Cefdinir 300 mg PO BID #20 capsule 02/16/19 Guaifenesin-Codeine [Cheratussin AC 100-10 mg/5Ml] 5 ml PO Q8H PRN #75 ml 02/16/19 Methylprednisolone [Medrol Dose Tex] 4 mg PO DAILY 6 Days #21 tab 02/16/19 Tramadol HCl 50 mg PO Q8HR PRN #20 tab 03/06/19 Acetaminophen W/ Codeine [Tylenol W/ CODEINE #3] 1 ea PO Q4HR PRN #20 04/28/19 Methocarbamol [Robaxin] 750 mg PO Q6H PRN #30 tab 04/28/19 Mxzttljmtqqms-Hwhi-Oeamvwrsim [Fioricet] 1 ea PO Q8H PRN #30 tab 05/02/19 Dexamethasone [Decadron] 4 mg PO DAILY #5 tab 05/02/19 Acetaminophen W/ Codeine [Tylenol W/ CODEINE #3] 1 ea PO Q6H PRN 14 Days #15 08/29/19 Azithromycin Tab [Zithromax Tab] 250 mg PO DAILY 4 Days #4 tab 08/29/19 Prednisone 60 mg PO DAILY 5 Days #15 tab 08/29/19 Additional Instructions: Take the antibiotics and steroids as prescribed. Continue albuterol nebulized treatments once every 4 hours for next 24 hours then use every 4 hours as needed. Continue Tylenol & ibuprofen for back pain. You may take Tylenol #3 for breakthrough pain, but do not smoke or operate heavy machinery while taking. Quit smoking as it can worsen your condition. Follow up with your PCP in next 3-7 days is recommended.
[2019-08-29] MEDS ORDERED: IPRATROPIUM/ALBUTEROL 3 ML VIAL NEB ONE ×2 (14:34→15:21)
[2019-08-29] MEDS ORDERED: POTASSIUM CHLORIDE ELIXIR 20 MEQ/15 ML UD PO ONE (15:23)
--- NOTE | 2019-08-29 15:29 | RAD ---
EXAM DESCRIPTION: Chest,2 Views CLINICAL HISTORY: cough, dyspnea COMPARISON: MRI thoracic spine May 26, 2019. FINDINGS: 2 views of the thorax. No acute consolidation, effusion or pneumothorax is present. Apical lucencies suggesting emphysema. Symmetric bilateral apical pleural thickening. Heart and mediastinum is within normal limits. Old anterior wedge compression fracture deformity T12. No new fractures are demonstrated with this modality. IMPRESSION: No acute radiographic finding. Electronically signed by: Charles Boo MD 08/29/2019 3:28 PM [facility]
[2019-08-29] MEDS ORDERED: AZITHROMYCIN 250 MG TAB PO ONE (16:08)
[2019-08-29 16:42] VITALS: BP 168/81; TEMP 97.3; O2SAT 95
== END 2019-08-29 16:41 | disposition home or self-care (01) ==
LOC: ER 13:55
DX: J44.1 Chronic obstructive pulmonary disease with (acute) exacerbation (principal); J20.9 Acute bronchitis, unspecified; J44.0 Chronic obstructive pulmonary disease with (acute) lower respiratory infection; R07.89 Other chest pain; R51 Headache; G89.29 Other chronic pain; I10 Essential (primary) hypertension; F17.210 Nicotine dependence, cigarettes, uncomplicated; Z79.899 Other long term (current) drug therapy; Z88.0 Allergy status to penicillin; Z88.8 Allergy status to other drugs, medicaments and biological substances; Z87.891 Personal history of nicotine dependence
CPT/HCPCS: 71046; 80048; 83880; 84484; 85025; 87502; 93005; 94640; 94760; J1885; J2930; J7040; J7620; Q0144

== ENCOUNTER → 2020-06-04 | Outpatient (CLI) | payer MEDICARE, MEDICAID ==
--- NOTE | 2020-06-05 10:55 | MRI ---
EXAM DESCRIPTION: Thoracic Spine w/o Contrast: Magnetic Resonance Imaging. CLINICAL HISTORY: CHRONIC PAIN SYNDROME. Mid to lower level back pain. "T12 fracture is old but still hurts." COMPARISON: MRI scan of the lumbar and thoracic spines May 2019. TECHNIQUE: Multiplanar, multiple standard sequences, non contrast MRI, thoracic spine. FINDINGS: Marrow edema visualized in the mid T12 vertebral body but also involving the anterior and posterior regions. Minimal marrow edema in the left pedicle. Not significantly decreased since the prior study one year ago. Marrow edema in the right pedicle has resolved since the prior study. Retropulsion of the superior endplate approximately 3 cm stable since the prior study. Abutting the cord. Central vertebral height is approximately 10 mm stable since the prior study. Mild to moderate narrowing of the bilateral T11-T12 foramina. Multiple disc space levels showing mild to moderate endplate reactive changes in the midline and to the right of midline anterior. Narrowing of disc spaces and desiccation of discs at T3-T4 down to T10-T11. Inactive Schmorl's nodes in the superior endplates at T6, T8, T9, and T11. Foramina are patent at other levels. No bulging or herniated discs at other levels. No abnormal marrow edema at other levels. Remaining discs with normal signal. Disc spaces are preserved. Canal and foramina are patent. Facet joints are unremarkable. Conus terminates T12-L1. Cord with normal signal, no compression. T5-T12 levoscoliosis Paravertebral soft tissues are unremarkable. Circumscribed hyperintense T1 and T2 hemangioma posterior T6 vertebral body left posterior T8 vertebral body with endplate and superior left T7 vertebral body. Otherwise, normal marrow signal in the remaining vertebral bodies and the posterior elements. Vertebral bodies are not compressed at any level. IMPRESSION: 1. No cord compression or canal stenosis at any level. Canal narrowing at the level of the superior T12 endplate secondary to retropulsion from previous compression type vertebral body fracture. Marrow edema in the vertebral body showing no significant decrease since the prior study one year ago except there is now no marrow edema in the right pedicle. Stable height of the central vertebral body since the prior study. The persistent marrow edema could indicate re-injury. 2. No new compression type vertebral body fractures or abnormal marrow edema. No significant disc bulging or disc herniation or foraminal stenosis at any level. Endplate reactive changes along with an active Schmorl's nodes are stable. Electronically signed by: Hakeem Salas MD 06/05/2020 10:53 AM CDT
== END ==
LOC: MRI 08:39
PROVIDERS: ATTEND Family Medicine
DX: G89.4 Chronic pain syndrome (principal); M51.24 Other intervertebral disc displacement, thoracic region; S22.080D Wedge compression fracture of T11-T12 vertebra, subsequent encounter for fracture with routine healing; R60.0 Localized edema; M51.44 Schmorl's nodes, thoracic region

== ENCOUNTER → 2020-06-05 | Outpatient (CLI) | payer MEDICARE, MEDICAID ==
--- NOTE | 2020-06-06 10:17 | MRI ---
EXAM DESCRIPTION: Lumbar Spine w/o Contrast CLINICAL HISTORY: CHRONIC PAIN SYNDROME COMPARISON: May 26, 2019 TECHNIQUE: Multiplanar, multisequence MRI of the lumbar spine was performed without contrast. FINDINGS: Anterior wedge compression fracture deformity of T12 is again seen with persistent diffuse marrow edema throughout the vertebral body improved from previous exam. Greater than 50% loss of vertebral body height towards the right is seen similar to slightly worsened compared to previous . Less than 2 mm retropulsed fragment of the superior plate is again seen. No new compression fracture deformity. Normal lumbar lordosis. Mild curvature of the upper lumbar spine convexity towards the right. Conus medullaris terminates at T12-L1 and is unremarkable. Visualized intra-abdominal and retroperitoneal structures show no acute findings. T12-L1: Mild bilateral facet arthrosis. No spinal canal stenosis or foraminal encroachment. L1-2 No significant findings. L2-3 Disc desiccation and minimal anterior listhesis. Mild facet hypertrophic and degenerative changes. No spinal canal stenosis. No foraminal encroachment. L3-4 No significant findings. L4-5 Mild bilateral facet hypertrophic and degenerative changes are again seen without spinal canal stenosis or foraminal encroachment. L5-S1 Disc desiccation without disc space narrowing. No spinal canal stenosis or foraminal encroachment. Mild facet hypertrophic and degenerative changes with small facet joint effusions are seen. IMPRESSION: Subacute compression fracture deformity of T12 is again seen similar to slightly increased loss of vertebral body height compared to previous. Mild disc disease and facet arthropathy of the lumbar spine is stable from previous. Electronically signed by: Shelton Vega MD 06/06/2020 10:15 AM CDT
== END ==
LOC: MRI 09:00
PROVIDERS: ATTEND Family Medicine
DX: G89.4 Chronic pain syndrome (principal); S22.040D Wedge compression fracture of fourth thoracic vertebra, subsequent encounter for fracture with routine healing; M51.36 Other intervertebral disc degeneration, lumbar region; M47.896 Other spondylosis, lumbar region

== ENCOUNTER → 2020-08-15 | Outpatient (CLI) | payer MEDICARE, MEDICAID ==
--- NOTE | 2020-08-19 22:48 | MRI ---
EXAM DESCRIPTION: Brain w/wo Contrast: Magnetic Resonance Imaging. CLINICAL HISTORY: SUDDEN HEARING LOSS COMPARISON: None. TECHNIQUE: Multiplanar high field MRI unit, multiple conventional sequences through the IACs, and the brain, before and after Dotarem gadolinium IV contrast, 1 mL per 5 kg body weight. No adverse reactions. FINDINGS: 8.0 x 4.7 mm enhancing tissue in the axial plane is abutting the superior left vestibulocochlear nerve and also abutting the meninges of the anterior left cerebellar cortex. 3.3 mm craniocaudal axis. This tissue demonstrates largest dimension in the AP axis, and is located at the level of the bilateral vertebral artery junction to form the basilar artery. The tissue is also associated with vessels extending into the fourth ventricle and the cerebellar tonsil.. This tissue may be encroaching on the left 9th cranial nerve as it courses superiorly and laterally from the left medulla. Normal signal in the right IACs with no abnormal enhancement and no mass. No fluid in the mastoid air cells. Normal contour of the right cerebellopontine angle with no mass, normal enhancement. Bilateral multifocal and confluent abnormal hyperintense FLAIR signal in the periventricular white matter, sub cortical white matter, and cortical thomas matter. More focal in the subcortical white matter from the level of the ventricles to the vertex bilaterally. . Normal contrast enhancement. No diffusion restriction No hemorrhage, no cerebral edema, no mass-effect. However, no one focal region of diffusion restriction on the posterior medial aspect of the occipital horn of the right lateral ventricle which corresponds with focal hyperintense FLAIR signal. No abnormal enhancement, no mass effect, no hemorrhage. One focal area of hyperintense FLAIR signal in the posterior right basal ganglia but the remainder of the basal ganglia bilaterally is unremarkable. No hemorrhage, no cerebral edema, no mass-effect. Normal contrast enhancement. Normal signal in the brainstem and cerebellar hemispheres. No hemorrhage, no cerebral edema, no mass-effect. Normal contrast enhancement. Concordance of the diffusion and non-diffusion sequences with no evidence of acute or subacute infarction. Cortical sulci, ventricles, and other CSF spaces, and the subdural spaces are normally configured for patient's age . No effacement or displacement. No midline shift. No extra-axial hemorrhage. Normal contrast enhancement. Paranasal sinuses are demonstrating minimal mucoperiosteal thickening. Anterior septum deviated to the right with kristan bullosa in the right middle turbinate and narrowing of the left nasal passageway.. Pituitary gland occupies less than half of the sella compartment. Bony calvarium is intact. Base of the cerebellar tonsils is above the foramen magnum. IMPRESSION: 1. Asymmetrically enhancing tissue, most prominent in the axial plane (8 mm), abutting the meninges of the anterior left cerebellar hemisphere, the left vestibular cochlear nerve below the left IAC. Also abutting the ascending left glossopharyngeal nerve from the medulla of the brainstem. Also adjacent to vessels connecting to the fourth ventricle and the cerebellar tonsils. Differential includes small aneurysm/ectasia, en plaque meningioma, and less likely schwannoma associated with the vestibular cochlear nerves or the 9th cranial nerve. Could a lesion in this location explain clinical history? Consider follow-up CTA to evaluate for aneurysm. 2. Focal area of diffusion restriction associated with focal hyperintense FLAIR signal abnormality posteriorly medially to the occipital horn of the right lateral ventricle. Correlate for neurological focal signs, most likely recent/subacute ischemic event. 3. Chronic periventricular white matter and subcortical white matter lesions most likely related to cerebral microvascular disease and aging. 4. Small pituitary gland. Electronically signed by: Hakeem Salas MD 08/19/2020 10:[address] [facility]
== END ==
LOC: MRI 10:26
PROVIDERS: ATTEND Otolaryngology
DX: Z01.812 Encounter for preprocedural laboratory examination (principal); H91.22 Sudden idiopathic hearing loss, left ear; G93.9 Disorder of brain, unspecified; R90.82 White matter disease, unspecified; E23.7 Disorder of pituitary gland, unspecified

== ENCOUNTER → 2020-10-23 | Outpatient (CLI) | payer MEDICARE, MEDICAID ==
--- NOTE | 2020-10-23 16:40 | CT ---
EXAM DESCRIPTION: CTA Head CLINICAL HISTORY: abnormal mri of head COMPARISON: MRI of the head August 15, 2020 TECHNIQUE: Pre and postcontrast CTA images of the head are obtained from base to vertex. Coronal and sagittal reconstructed images are obtained with 3-D MIP reconstructed images of the arterial vasculature. This exam was performed according to our departmental dose-optimization program, which includes automated exposure control, adjustment of the mA and/or kV according to patient size and/or use of iterative reconstruction technique . FINDINGS: The midline structures are not displaced. Sulci are age-appropriate. No mass, mass effect, hydrocephalus, or acute intracranial hemorrhage is seen. No abnormal extra-axial fluid collections are seen. No abnormal areas of enhancement. In the area of enhancement seen on previous MRI, no enhancing abnormality is seen on CT imaging. This area is seen on images 20 through 22. This likely represents normal venous vasculature enhancement. No aneurysm is seen in this location. A similar less prominent structure seen on the opposite side. Mild calcifications of the cavernous supraclinoid portion of the internal carotid arteries seen bilaterally contributing to areas of mild carotid artery stenosis. Mild calcified plaque of the intracranial vertebral arteries is seen contributing to mild stenosis. Mild focal stenosis of the right vertebral artery at the attachment to the basilar artery is seen. Normal branching of the major intracranial arterial vasculature are seen. No arterial occlusion or high-grade stenosis. No aneurysm or vascular malformation. Normal opacification of the major venous vasculature is seen. Dominant venous drainage is towards the right. Mild right jugular bulb dehiscent is seen on images 17 and 18 of series 2. Mild patchy areas of decreased attenuation are seen in the periventricular white matter and white matter of the centrum semiovale. 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 No high-grade or flow limiting stenosis of the intracranial arterial vasculature is seen. No aneurysm or vascular malformation of the intracranial arterial circulation. Other findings as described above. Age-appropriate atrophy with mild old small vessel ischemic type changes are seen. Electronically signed by: Shelton Vega MD 10/23/2020 4:38 PM [facility]
== END ==
LOC: CT 09:06
PROVIDERS: ATTEND Otolaryngology Otology & Neurotology
DX: Z01.812 Encounter for preprocedural laboratory examination (principal); H91.20 Sudden idiopathic hearing loss, unspecified ear; R93.0 Abnormal findings on diagnostic imaging of skull and head, not elsewhere classified; I65.23 Occlusion and stenosis of bilateral carotid arteries; I66.8 Occlusion and stenosis of other cerebral arteries; G31.1 Senile degeneration of brain, not elsewhere classified; I67.82 Cerebral ischemia